=== PATIENT | male | born 1965 | race Caucasian/White ===

== ENCOUNTER 2019-05-20 10:14 | Outpatient (CLI) | payer MEDICARE ==
[~2019-05-20 10:14] MED LIST: FLUO40CA2 PO; HYDR-36 PO; LISI40TA PO; LORA2TAB99 PO; MORP-52 PO; OXYC5TAB3 PO
[2019-05-20] MEDS ORDERED: LISI30TA4 PO (10:58)
[2019-05-20] MEDS ORDERED: ATOR10TA PO (10:58)
[2019-05-20] MEDS ORDERED: FLUO40CA9 PO (10:58)
[2019-05-20] MEDS ORDERED: MELO15TA24 PO (10:58)
[2019-05-20] MEDS ORDERED: ALBU8.5H8 INH (11:22)
[2019-05-20 11:42] LABS: INTERNATIONAL NORMALIZED RATIO 0.98 (0.93-1.1); PROTHROMBIN TIME 10.3 Seconds (9.6-11.5)
[2019-05-20 11:44] LABS: ALANINE AMINOTRANSFERASE 36 U/L (12-78); ALBUMIN 4.2 g/dL (3.4-5.0); ANION GAP 3 mmol/L (5-15); CALCIUM 9.3 mg/dL (8.5-10.1); CHLORIDE 107 mmol/L (98-107); CREATININE 1.11 mg/dL (0.7-1.3)
[2019-05-20 11:46] LABS: ALKALINE PHOSPHATASE 71 U/L (45-117); BILIRUBIN,TOTAL 0.7 mg/dL (0.2-1.0); TOTAL PROTEIN 7.7 g/dL (6.4-8.2)
[2019-05-20 11:53] LABS: BASOPHILS # (AUTO) 0.05 x10^3/uL (0-0.1); BASOPHILS % (AUTO) 1 % (0-1); EOSINOPHILS # (AUTO) 0.09 x10^3/uL (0-0.4); EOSINOPHILS % (AUTO) 1 % (1-7); LYMPHOCYTES # (AUTO) 1.37 x10^3/uL (1-3.4); LYMPHOCYTES % (AUTO) 18 % (22-44); MD NO; MEAN CORPUSCULAR HEMOGLOBIN 30.4 pg (27.5-34.5); MEAN CORPUSCULAR HGB CONC 33.6 g/dL (33.2-36.2); MEAN CORPUSCULAR VOLUME 90.6 fL (81-97); MEAN PLATELET VOLUME 7.9 fL (7.4-10.4); MONOCYTES # (AUTO) 0.65 x10^3/uL (0.2-0.8); MONOCYTES % (AUTO) 9 % (2-9); NEUTROPHILS # (AUTO) 5.35 x10^3/uL (1.8-6.8); NEUTROPHILS % (AUTO) 71 % (42-75); PLATELET COUNT 346 x10^3/uL (130-400); RED BLOOD COUNT 5.03 x10^6/uL (4.38-5.82); RED CELL DISTRIBUTION WIDTH 14.3 % (9.4-14.8)
[2019-05-20 12:42] LABS: MICROSCOPIC INDICATED
[2019-05-21 08:47] LABS: CULTURE INDICATED? YES
== END 2019-05-20 23:59 | disposition home or self-care (01) ==
LOC: STAR 10:14
PROVIDERS: ATTEND Neurological Surgery
DX: Z01.811 Encounter for preprocedural respiratory examination (principal); Z01.812 Encounter for preprocedural laboratory examination; R79.1 Abnormal coagulation profile; R94.31 Abnormal electrocardiogram [ECG] [EKG]; R82.90 Unspecified abnormal findings in urine
CPT/HCPCS: 36415; 71046; 80053; 81001; 85025; 85610; 85730; 87086; 93005

== ENCOUNTER 2019-06-03 10:27 | Inpatient (IN) | payer MEDICARE ==
[~2019-06-03] VITALS: Ht 180.3 cm; Wt 108.0 kg
[~2019-06-03 10:27] MED LIST changes: +ALBU8.5H8 INH; +ATOR10TA PO; +BACITRACIN 50,000 UNIT ONE; +BUPIVACAINE/PF 0.5% ONE; +EPINEPHRINE 1 MG/ML, 1ML ONE; +FLUO40CA9 PO; +LISI30TA4 PO; +MELO15TA24 PO; +THROMBIN (RECOMBINANT) 5,000 UNIT VIAL TP ONE; +VANCOMYCIN 1,000 MG ONE
[2019-06-03] MEDS ORDERED: LACTATED RINGERS 1,000 ML IV SCH (13:52)
[2019-06-03] MEDS ORDERED: LIDOCAINE-MPF 1%, 2ML INFIL ONE (14:00)
[2019-06-03] MEDS ORDERED: GABAPENTIN 300 MG CAPSULE PO ONE (14:00)
[2019-06-03] MEDS ORDERED: ACETAMINOPHEN 500 MG TABLET PO ONE (14:00)
[2019-06-03] MEDS ORDERED: FENTANYL PF 250 MCG/5ML ONE (16:43)
[2019-06-03] MEDS ORDERED: MIDAZOLAM 1 MG/ML, 2ML ONE (16:43)
[2019-06-03] MEDS ORDERED: SUCCINYLCHOLINE 20 MG/ML, 10ML ONE (18:14)
[2019-06-03] MEDS ORDERED: PROPOFOL 10 MG/ML, 20ML ONE (18:14)
[2019-06-03] MEDS ORDERED: ONDANSETRON 2MG/ML, 2ML ONE (18:14)
[2019-06-03] MEDS ORDERED: NEOSTIGMINE 1 MG/ML, 10ML ONE (18:14)
[2019-06-03] MEDS ORDERED: SUGAMMADEX 200 MG/2 ML IVPush ONE ×2 (18:14)
[2019-06-03] MEDS ORDERED: GLYCOPYRROLATE 0.2MG/1ML, 5ML ONE (18:14)
[2019-06-03] MEDS ORDERED: ROCURONIUM 10MG/ML,5ML ONE ×2 (18:14)
[2019-06-03] MEDS ORDERED: CEFAZOLIN 1,000 MG ONE (18:14)
[2019-06-03] MEDS ORDERED: DEXAMETHASONE 4 MG/ML, 1ML ONE (18:14)
[2019-06-03] MEDS ORDERED: LABETALOL 5MG/ML, 20ML IV PRN (18:30)
[2019-06-03] MEDS ORDERED: hydrALAzine 20 MG/ML, 1ML IV PRN (18:30)
[2019-06-03] MEDS ORDERED: MEPERIDINE/PF 25MG/0.5ML IVPush PRN (18:30)
[2019-06-03] MEDS ORDERED: FENTANYL PF 100 MCG/2ML IV PRN (18:30)
[2019-06-03] MEDS ORDERED: ALBUTEROL SULFATE 2.5 MG/3 ML NPPB PRN ×2 (18:30→21:00)
[2019-06-03] MEDS ORDERED: OXYcodone 5 MG/5 ML ORAL.SOL UDC PO PRN (18:30)
[2019-06-03] MEDS ORDERED: PROMETHAZINE 25 MG/ML, 1ML IV PRN (18:30)
[2019-06-03] MEDS ORDERED: ACETAMINOPHEN 325 MG TABLET PO PRN (18:30)
[2019-06-03] MEDS ORDERED: KETOROLAC 30 MG/1 ML IV PRN (18:30)
[2019-06-03] MEDS ORDERED: HYDROmorphone 2 MG/ML, 1ML IVPush PRN (18:30)
[2019-06-03] MEDS ORDERED: DIAZEPAM 5 MG/ML, 2ML IVPush PRN (18:30)
[2019-06-03] MEDS ORDERED: MEPERIDINE/PF 100 MG/ML ONE (18:39)
[2019-06-03] MEDS ORDERED: DIAZEPAM 5 MG/ML, 2ML ONE (18:56)
[2019-06-03] MEDS ORDERED: KETOROLAC 30 MG/1 ML ONE (18:56)
[2019-06-03] MEDS ORDERED: FENTANYL PF 100 MCG/2ML ONE (18:56)
[2019-06-03] MEDS ORDERED: METHOCARBAMOL 1000MG/10 ML IVPB ONE (19:00)
[2019-06-03] MEDS ORDERED: METHOCARBAMOL 1,000 MG in DEXTROSE 5% 100 ML IV ONE (19:30)
[2019-06-03] MEDS ORDERED: PHARMACY MAY ADJ FOR RENAL FX MC PRN (20:30)
[2019-06-03] MEDS ORDERED: ZOLPIDEM 5MG TABLET PO PRN (21:00)
[2019-06-03] MEDS ORDERED: ATORVASTATIN 10 MG TABLET PO SCH (21:00)
[2019-06-03] MEDS ORDERED: PROMETHAZINE 25 MG/ML, 1ML IM PRN (21:30)
[2019-06-03] MEDS ORDERED: LORazepam 1MG TABLET PO PRN (21:30)
[2019-06-03] MEDS ORDERED: D5%-0.9% NACL+KCL 20MEQ 1,000 ML IV SCH (21:30)
[2019-06-03] MEDS ORDERED: ACETAMINOPHEN 650 MG SUPP PR PRN (21:30)
[2019-06-03] MEDS ORDERED: BISACODYL 10 MG SUPP PR PRN (21:30)
[2019-06-03] MEDS ORDERED: DIPHENHYDRAMINE 50 MG/ML, 1ML IVPush PRN (21:30)
[2019-06-03] MEDS ORDERED: MAGNESIUM HYDROXIDE 8%, 30ML UDC PO PRN (21:30)
[2019-06-03] MEDS ORDERED: ONDANSETRON 2MG/ML, 2ML IV PRN (21:30)
[2019-06-03] MEDS: ACETAMINOPHEN 325 MG TABLET PO PRN (21:46)
[2019-06-03 23:53] VITALS: BP 144/96
[2019-06-04] MEDS ORDERED: KETOROLAC 30 MG/1 ML IM SCH (02:00)
[2019-06-04] MEDS: CEFAZOLIN PMX 1GM/50ML 50 ML IVPB SCH ×2 (02:04→10:39)
[2019-06-04] MEDS: ACETAMINOPHEN 325 MG TABLET PO PRN ×2 (02:05→06:37)
[2019-06-04] MEDS: KETOROLAC 30 MG/1 ML IM/IV SCH ×2 (02:56→11:04)
[2019-06-04] MEDS ORDERED: CYCLOBENZAPRINE 10 MG TABLET PO PRN (03:00)
[2019-06-04] MEDS ORDERED: KETOROLAC 30 MG/1 ML IM/IV SCH (04:00)
[2019-06-04 04:04] VITALS: BP 127/79
[2019-06-04] MEDS ORDERED: FLU VACC QS2019-20 36MOS UP/PF 0.5 ML IM-VACC ONE (05:30)
[2019-06-04 05:48] LABS: BASOPHILS % (AUTO) 0 % (0-1); EOSINOPHILS % (AUTO) 0 % (1-7); LYMPHOCYTES # (AUTO) 0.73 x10^3/uL (1-3.4); LYMPHOCYTES % (AUTO) 7 % (22-44); MD NO; MEAN CORPUSCULAR HEMOGLOBIN 29.4 pg (27.5-34.5); MEAN CORPUSCULAR HGB CONC 32.8 g/dL (33.2-36.2); MEAN CORPUSCULAR VOLUME 89.8 fL (81-97); MEAN PLATELET VOLUME 7.4 fL (7.4-10.4); MONOCYTES # (AUTO) 0.41 x10^3/uL (0.2-0.8); MONOCYTES % (AUTO) 4 % (2-9); NEUTROPHILS # (AUTO) 9.33 x10^3/uL (1.8-6.8); NEUTROPHILS % (AUTO) 89 % (42-75); PLATELET COUNT 309 x10^3/uL (130-400); RED BLOOD COUNT 4.96 x10^6/uL (4.38-5.82); RED CELL DISTRIBUTION WIDTH 13.8 % (9.4-14.8)
[2019-06-04 05:51] LABS: ANION GAP 6 mmol/L (5-15); CHLORIDE 108 mmol/L (98-107); CREATININE 1.16 mg/dL (0.7-1.3)
[2019-06-04] MEDS ORDERED: ENOXAPARIN 40 MG/0.4 ML SQ SCH (06:00)
[2019-06-04 08:21] VITALS: BP 148/97
[2019-06-04] MEDS ORDERED: SENNA/DOCUSATE TABLET PO SCH (09:00)
[2019-06-04] MEDS ORDERED: FLUOXETINE HCL 20 MG CAPSULE PO SCH (09:00)
[2019-06-04] MEDS ORDERED: LISINOPRIL 10 MG TABLET PO SCH (09:00)
[2019-06-04] MEDS ORDERED: CYCL-259 PO (09:01)
== END 2019-06-04 11:32 | disposition home or self-care (01) | DRG 30 ==
LOC: ORIP 13:24 → 4NE 19:57 → DCLOUNGE 06-04 11:22
PROVIDERS: ADMIT Neurological Surgery; ATTEND Neurological Surgery
PROC: 00UT0KZ Supplement Spinal Meninges with Nonautologous Tissue Substitute, Open Approach (ICD-10-PCS; 2019-06-03)
PROC: 01NB0ZZ Release Lumbar Nerve, Open Approach (ICD-10-PCS; principal; 2019-06-03 17:30)
DX: G96.19 Other disorders of meninges, not elsewhere classified (principal); R51 Headache; Z88.8 Allergy status to other drugs, medicaments and biological substances; Z91.040 Latex allergy status; J45.909 Unspecified asthma, uncomplicated; F32.9 Major depressive disorder, single episode, unspecified; I10 Essential (primary) hypertension; Z81.1 Family history of alcohol abuse and dependence; Z83.3 Family history of diabetes mellitus; Z82.49 Family history of ischemic heart disease and other diseases of the circulatory system; Z82.5 Family history of asthma and other chronic lower respiratory diseases; Z80.1 Family history of malignant neoplasm of trachea, bronchus and lung
CPT/HCPCS: 36415; 80048; 85025; 90686; G0378; J0171; J0690; J1100; J1650; J1885; J2250; J2405; J2704; J2710; J3010; J3360; J3370; C1781; J0330; J2175; J2800; J3480; J7120